=== PATIENT | female | born 1960 | race Caucasian/White ===

== ENCOUNTER → 2016-07-04 16:49 | Outpatient (CLI) | payer MEDICAID ==
[2012-04-10 12:35] VITALS: BMI 49.8
== END | disposition home or self-care (01) ==
LOC: D.MAMMO 11:45
DX: Z12.31 Encounter for screening mammogram for malignant neoplasm of breast (principal)

== ENCOUNTER → 2016-09-25 10:47 | Outpatient (CLI) | payer OTHER ==
[2012-04-10 12:35] VITALS: BMI 49.8
== END | disposition home or self-care (01) ==
LOC: D.LAB 08:00 → D.RAD 10:47
DX: Z02.71 Encounter for disability determination (principal)

== ENCOUNTER → 2017-08-27 11:01 | Outpatient (CLI) | payer MEDICAID ==
[2012-04-10 12:35] VITALS: BMI 49.8
== END | disposition home or self-care (01) ==
LOC: D.RAD 11:01
DX: M25.511 Pain in right shoulder (principal); M25.512 Pain in left shoulder

== ENCOUNTER 2018-02-04 21:00 | Outpatient (CLI) | payer OTHER ==
[2012-04-10 12:35] VITALS: BMI 49.8
== END 2018-02-04 23:59 | disposition home or self-care (01) ==
LOC: D.MAMMO 21:00
DX: Z12.31 Encounter for screening mammogram for malignant neoplasm of breast (principal)

== ENCOUNTER 2018-03-15 19:00 | Outpatient (CLI) | payer OTHER ==
[2012-04-10 12:35] VITALS: BMI 49.8
== END 2018-03-15 23:59 | disposition home or self-care (01) ==
LOC: D.MAMMO 19:00
DX: R92.2 Inconclusive mammogram (principal)

== ENCOUNTER 2018-11-30 11:32 | Emergency (ER) | payer OTHER ==
[~2018-11-30] VITALS: Ht 162.6 cm; Wt 84.1 kg
[2018-11-30 11:37] VITALS: Ht 162.6 cm; Wt 84.1 kg
[2018-11-30] MEDS ORDERED: BUSPAR 15 MG TA15 MG PO (11:39)
[2018-11-30] MEDS ORDERED: LIPITOR40 MG PO (11:40)
[2018-11-30] MEDS ORDERED: DEPAKOTE250 MG PO (11:40)
[2018-11-30] MEDS ORDERED: LEXAPRO20 MG PO (11:40)
[2018-11-30] MEDS ORDERED: ROBAXIN500 MG PO (11:40)
[2018-11-30 12:07] LABS: BASOPHILS 0.5 % (0-2); EOSINOPHILS 5.2 % (0-7); HEMATOCRIT 39.5 % (36.0-48.0); HEMOGLOBIN 13.5 g/dL (12-16); IMMATURE GRANULOCYTES 0.2 % (0-5); LYMPHOCYTES 31.6 % (15-50); MCH 32.4 pg (26.0-34.0); MCHC 34.2 g/dL (31.0-37.0); MCV 94.7 fL (80.0-100.0); MEAN PLATELET VOLUME 12.6 fL (7.4-10.4); MONOCYTES 5.9 % (2-11); NEUTROPHILS 56.6 % (40-80); RBC 4.17 10x6/uL (4.00-5.40); RDW 13.3 % (11.5-14.5); WBC 10.9 10x3/uL (4.8-10.8)
[2018-11-30 12:12] LABS: APTT 32.6 SECONDS (22.8-39.4); INR 1.09 (0.85-1.17); PLATELET COUNT 171 10x3/uL (130-400); PROTIME 13.6 SECONDS (11.6-15.0)
[2018-11-30 12:25] LABS: ALBUMIN 3.4 g/dL (3.4-5.0); ALKALINE PHOSPHATASE 94 U/L (46-116); ALT (SGPT) 27 U/L (10-68); BILIRUBIN - TOTAL 0.29 mg/dL (0.2-1.3); CALC OSMOLALITY 286 mosm/kg (275-300); CARBON DIOXIDE 27.4 mmol/L (21.0-32.0); CHLORIDE - SERUM 108 mmol/L (98-107); CREATININE - SERUM 1.1 mg/dL (0.6-1.3); GLUCOSE 96 mg/dL (74-106); POTASSIUM - SERUM 3.7 mmol/L (3.5-5.1); PROTEIN - SERUM 6.5 g/dL (6.4-8.2); SODIUM 142 mmol/L (136-145); UREA NITROGEN 24 mg/dL (7-18); eGFR NON AFRICAN AMERICAN 54 mL/min (90-120)
[2018-11-30 12:28] LABS: CKMB 0.9 U/L (0.0-3.6); CREATINE KINASE 88 UL (21-215); TROPONIN-I < 0.017 ng/mL (0.000-0.060)
[2018-11-30 15:15] VITALS: BP 126/72
== END 2018-11-30 15:17 | disposition home or self-care (01) ==
LOC: D.ER 11:32
PROVIDERS: Emergency Medicine
DX: R07.9 Chest pain, unspecified (principal)

== ENCOUNTER 2019-04-10 09:00 | Outpatient (CLI) | payer OTHER ==
[2018-11-30 11:37] VITALS: BMI 31.8
[~2019-04-10 09:00] MED LIST: BUSPAR 15 MG TA15 MG PO; DEPAKOTE250 MG PO; LEXAPRO20 MG PO; LIPITOR40 MG PO; ROBAXIN500 MG PO
== END 2019-04-10 10:00 | disposition home or self-care (01) ==
LOC: D.MAMMO 09:00
PROVIDERS: ATTEND Family Medicine
DX: Z12.31 Encounter for screening mammogram for malignant neoplasm of breast (principal)